=== PATIENT | female | born 1950 | race Caucasian/White ===

== ENCOUNTER 2016-07-18 10:45 | Emergency (ER) | payer MEDICARE ==
[~2016-07-18 10:45] MED LIST: ALLEGRA ALLERG180 MG PO; CIPRO500 MG PO; COZAAR100 MG PO; DIFLUCAN150 MG PO; DUONEB 2.5-0.5MG3 ML NEB; EFFEXOR-XR75 MG PO; ERYTHROMYCIN O3.5 GM OD; FLONASE 0.05% N16 GM; GLUCOPHAGE500 MG PO; HCTZ25 MG PO; HYDROCODON-ACE1 EAC6 PO; IBUPROFEN800 MG PO; INDOCIN25 MG PO; K-TAB ER20 MEQ PO; LEVAQUIN750 MG PO; METHOCARBAMOL750 MG PO; NEURONTIN400 MG PO; NICODERM 14MG PA1 EA TD; NICODERM 7MG PAT1 EA TD; NORVASC5 MG PO; PANTOPRAZOLE SO40 MG PO; SPIRIVA18 MCG IH; SYMBICORT 160/4.6 GM INH; TRIAMCINOLONE A15 GM TP; TYLENOL325 M1 PO; XANAX1 MG PO; ZOCOR20 MG PO; ZOFRAN4 MG PO
== END 2016-07-18 11:31 | disposition home or self-care (01) ==
LOC: ER 10:45
DX: N39.0 Urinary tract infection, site not specified (principal); E11.9 Type 2 diabetes mellitus without complications; I10 Essential (primary) hypertension; J44.9 Chronic obstructive pulmonary disease, unspecified
CPT/HCPCS: 96372; 99070; 99282-25; 99283